=== PATIENT | male | born 1965 | race Two or more races ===

== ENCOUNTER 2019-11-10 18:41 | Emergency (ER) | payer MEDICAID ==
[~2019-11-10] VITALS: Ht 167.6 cm; Wt 77.0 kg
[2019-11-10 19:30] VITALS: BP 159/99
== END 2019-11-10 21:00 | disposition home or self-care (01) ==
LOC: ER 18:41
DX: R07.9 Chest pain, unspecified (principal); I10 Essential (primary) hypertension; Z11.59 Encounter for screening for other viral diseases
CPT/HCPCS: 71045; 99283; C9803; U0003